=== PATIENT | female | born 1995 | race Caucasian/White ===

== ENCOUNTER 2019-03-03 12:31 | Day surgery (SDC) | payer OTHER, SELFPAY ==
[2019-01-21 15:30] VITALS: BMI 44.4
[2019-02-08 08:51] VITALS: BMI 44.4
--- NOTE | 2019-02-08 09:17 | HP_ITS ---
I have re-examined the patient. There are no clinical changes since date of exam. Intake Vital Signs 01/21/19 Height 5 ft 10 in 01/21/19 Weight: 310 lb 01/21/19 Body Mass Index (BMI) 44.4 Intake Visit Reasons: R. KNEE Accompanied by: parents Is patient in pain?: Yes Pain scale (1-10): 2 Allergies No Known Allergies Allergy (Unverified 01/21/19 15:29) Medications ferrous sulfate 325 mg (65 mg iron) tablet 325 mg PO DAILY 01/21/19 [History Confirmed 01/21/19] levothyroxine 125 mcg capsule 125 mcg PO DAILY 01/21/19 [History] HPI R. KNEE : Surgical H&P: Yes Details: Parts of this documentation were recorded by a scribe, this documentation accurately reflects the service provided and the decisions made by me, Nati Snyder, 01/21/19 5900. BYRON CRISTINA is a 23 year old F NEW patient here today for left knee pain. Patient had a fall October 02 and she had a left arm fx and she fell agian and the orthopedics office was more concerned at the time about her arm and kept saying that her knee pain will improve but her pain is still here today. Denies any popping but does have instability and giving our of her knee. she has had an MRI and x-rays of her left knee. Patient has a deep joint pain below her patella. Patient has had PT but she is still lacking full extension. Denies numbness, tingling or other associated symptoms. Denies any previous surgeries or injection. ROS Musc Reports limited joint movement, Denies numbness, Reports stiffness, Denies tingling Skin/Breast Denies rash, Denies skin pain, Denies skin swelling Neuro No numbness, No tingling Ortho Exam Left Knee Knee ROM: No ROM-Extension -20 to 0, No ROM-Flexion 0-140 Examination: Yes Lat jt line tenderness, Yes Pain with flexion Stability: 2+: Anterior Drawer KNEE: Marshal 4+ No rales rhonchi wheezing, no abdominal pain, no audible bruits Assessment & Plan Problems 1. Sprain of anterior cruciate ligament of left knee, initial encounter S83.512A 2. Other tear of lateral meniscus of left knee as current injury, initial encounter S83.282A Plan Personally reviewed the patient's medical history, medications, surgeries and recent exams if available. Educated on the anatomy of the knee and explained that she has a free edge tear noted in the radiology reports but on exam she has signs Explained that with an ACL and meniscal root tear the option would be repair of both for stability and to keep all possible cushion in the knee for nursing home health of the knee, there will be increased risk of arthrofibrosis due to surgery. Reviewed the graft options for ALC reconstruction and the differences between options based on activity level. Explained that this time of year fills up fast we will get her in a hinged brace but she will sign today and cancel if needed. we need preop disc prior to surgical intervention. notified patient of this and will drop disc off. Reviewed the pre-operative plans with the patient. Risks and benefits of the procedure were fully explained, including but not limited to infection, neurovascular injury, continued pain, arthritis, stiffness, need for further surgery, re-injury, DVT, PE, general risks of anesthesia, and loss of limb or life. The patient understands all the risks and does wish to proceed with written consent. Follow up post op or sooner if pain, swelling, numbness or associated symptoms, or concerns develop. All questions answered. Patient in agreement of plan. Coding Level of Care Code Off vis,new,level 3 Diagnoses Sprain of anterior cruciate ligament of left knee, initial encounter S83.512A Other tear of lateral meniscus of left knee as current injury, initial encounter S83.282A ??Encounter type: initial encounter ??Meniscus of knee: lateral ??Meniscus tear of knee type: other type ??Tear current or old: current
[2019-03-03] VITALS (12 sets, daily range): BP systolic 128–156; BP diastolic 77–98; PULSE 95–112; RESP 16–18; TEMP 36.6–37.1; O2SAT 93–99; BMI 45.7
--- NOTE | 2019-03-03 12:51 | EKG12_ITS ---
Test Reason : PREOP Blood Pressure : / mmHG Vent. Rate : 096 BPM Atrial Rate : 096 BPM P-R Int : 150 ms QRS Dur : 086 ms QT Int : 368 ms P-R-T Axes : 018 019 000 degrees QTc Int : 464 ms Normal sinus rhythm Normal ECG No previous ECGs available Confirmed by SOLE LEAYR, RONNIE ([id number]), graphics editor WOJCIECH CARRASCO ([id number]) on 03/08/2019 10:16:44 AM Referred By: Nati Snyder Confirmed By:RONNIE WHIPPLE MD
[2019-03-03 13:07] LABS: Internal QC Validated? YES +Cl - CLEAR BKGD
[2019-03-03 13:12] LABS: Pregnancy, Urine Negative Negative
[2019-03-03] MEDS: Lactated Ringers 1,000 ML 100 ML IV ×2 (13:26→17:30)
[2019-03-03 13:31] LABS: Hematocrit 34.9 % (37-47); Hemoglobin 10.7 g/dL (12.0-15.0); Mean Corp Hgb Conc 30.7 g/dL (32-36); Mean Corpuscular Hgb 24.9 pg (27.0-32.0); Mean Corpuscular Volume 81.2 fL (81-99); Platelet Count 464 K/mm3 (150-450); RBC Distribution Width CV 16.3 % (11.6-14.6); RBC Distribution Width SD 47.8 fl (35.1-43.9); White Blood Count 8.3 K/mm3 (4.4-11.0)
[2019-03-03 13:51] LABS: Prothrombin Time (Protime)PT. 13.3 SECONDS (11.7-14.9)
[2019-03-03 13:52] LABS: Partial Thromboplast Time 32.6 Seconds (24.1-36.2)
[2019-03-03 13:53] LABS: Thyroid Stim Hormone (TSH) 2.88 uIU/mL (0.358-3.74)
[2019-03-03] MEDS: Cefazolin 2 GM in 0.9% Normal Saline 100 ML IV (15:34)
[2019-03-03] MEDS: Epinephrine (1 mg/ml) 1 MG/ML VIAL (15:34)
--- NOTE | 2019-03-03 15:42 | PCM.DC.ORTHO ---
Discharge Diet: No Restrictions - Toe-touch weightbearing brace locked in extension during ambulation and at night, may range of motion 0 to 30 degrees while seated, ankle pumps ice elevate toes above nose, follow-up on Friday with Antonio for dressing change and brace adjustment, call with concerns Discharge Activity: May Not Drive May shower in (days): 1 Ice area for (Minutes): 20 - Every hour while awake. Weight Bearing Status: Weight bearing as tolerated Keep extremity elevated above heart level: Operative Extremity Call your doctor if your incision/area has: Continuous Slow Oozing, Sudden Increased Bleeding, Increased Pain/ Swelling, Increased Redness, Foul Smelling Discharge Call your doctor if you observe: Fever of 101 or Higher, Coldness, Increased Pain, Numbness or Tingling, Change in Color, Calf discomfort Allergies/Adverse Reactions: Allergies No Known Allergies Allergy (Unverified 03/03/19 13:11) Medications to take at Discharge ferrous sulfate 325 mg (65 mg iron) tablet 325 mg PO DAILY 01/21/19 levothyroxine 125 mcg capsule 125 mcg PO DAILY 01/21/19 Hydrocodone Bitart/Apap 5-325 [[place] 5MG-325MG] 1 - 2 tab PO Q6H PRN PRN 5 Days #40 tab 03/03/19 The following prescriptions were given: Hydrocodone Bitart/Apap 5-325 [[place] 5MG-325MG] 1 - 2 tab PO Q6H PRN PRN 5 Days #40 tab PRN Reason: Pain Transmission Status: Received by [facility] Primary Care Physician: ANGELINA YEE [Other] Test Results: Test results from this visit will be discussed in further detail at your follow-up appointment, if applicable. Please Follow Up With: Nati Snyder, DO - [phone]
--- NOTE | 2019-03-03 15:43 | PCM.OPRPT ---
Report of Operation Date of Procedure: 03/03/19 Pre-Operative Diagnosis: left acl tear, lat meniscus tear Post-Operative Diagnosis: same Surgery/Procedure Performed:: salk, plm, lat men repair, partial lateral meniscectomy, acl reconstruction with quad autograft trimming machine set up operator: Magno Boston Type of Anesthesia:: General Anesthesiologist: Chong Kapoor Estimated Blood Loss (mL): minimal Fluids Replaced: 1500cc Description of Procedure: Preoperative note Patient is a 23-year-old female with continued left knee instability and pain. Patient states that the leg strips and gives out on her even while she is doing activities of daily living. MRI confirmed lateral meniscus tear and ACL tear. Patient failed conservative treatment like to proceed with left knee arthroscopy repair as indicated. Risk benefits and alternatives surgery discussed the patient. Risks include but not limited to blood loss, blood clot, infection, neurovascular, failure procedure, loss of life and loss of limb. Patient is aware and like to proceed with left knee arthroscopy ACL reconstruction with autograft repair as indicated. Next Operative note Patient seen and examined preop holding her. Left knee was marked. Patient brought to the operating room placed supine on the operating table sign, anesthesia, antibiotics were administered. The left leg was prepped and draped in usual sterile fashion with a tourniquet around her upper thigh. All bony promises well-padded padded SCDs placed on her contralateral limb. Monitor portal placement for left leg. We then marked out our incision for our quad tendon autograft harvest. Timeout was performed. We then made about a 3 cm incision over the superior aspect of the patella horizontal fashion we then secured the quad autograft in standard technique using [email or web address] his quad autograft system. We then prepared in standard technique on the back table. The leg was then elevated exsanguinated and triggers rates her pressure of 250 300 torr. We created an anteromedial portal under direct visualization. The medial meniscus was intact and stable probing. The medial femoral condyle middle medial tibial plateau were intact and stable probing. The ACL was torn the PCL was present within the notch. There is a posterior para meniscal cyst posterior to the PCL. We then probed the lateral meniscus there was an unstable lateral meniscus tear as well as a root tear that was an unstable flap tear at the root itself was secured. We inserted a shaver and resected back the unstable lateral meniscus tear we then noted that the meeting tear was actually at the red-white red-pink border this was gently rasped we placed 3 reverse curved FasT-Fix device across we then inserted a probe and noted that we had secured the meniscus for our remaining. We did also truncated little bit more of the graft of the meniscus towards the mid body and assess there was an undersurface flap tear there as well. We then moved to her ACL. We performed a notchplasty we measured the graft in the back table to be 8-1/2 we then did use a flip pole cutter standard technique inside out from the lateral side ensuring that we prepared and protected all neurovascular structures. We then placed our medial portal. We placed our tibial guide and drilled our flip cutter for the tibial side as well. In standard technique. We then brought the graft in the back table brought through the medial portal flipped the button on the lateral femoral cortex and visualize this intra-articularly. We then were able to bring the graft into the femoral socket about 20 mm or so. We then cycled the graft we then brought the graft down to the tibial tunnel and then secured the graft on the tibial side with a button using again [employer] system. We then brought the graft further into the femoral tunnel and then truncated also loose suture ends. The knee was irrigated with copious amounts of sterile saline. The incisions were closed with 2-0 Vicryl and 4-0 nylon the portals were closed with 4-0 nylon. Sterile dressings were applied the tourniquet was deflated for a total working time of 87 minutes. Patient tied procedure well no comp occasions treasury recovery room in stable condition. Patient did have sterile dressings and a hinged brace was applied to her left knee. Postoperative note Next Pharmacy has prescriptions We will give family pictures in 2 weeks Elevate, ice, ankle pumps, compression socks as discussed Call with increased pain numbness tingling further issues arise This note was generated with [employer] dictation software. It may contain incorrect words, spelling, and punctuation that were not noted in checking the note before signing. Grafts/Implants Used: quad autograft
[2019-03-03] MEDS: Mupirocin Ointment 22gm Tube 1 APPLIC (18:13)
== END 2019-03-03 21:10 | disposition home or self-care (01) ==
LOC: SDC 12:33 → AC 12:35
PROVIDERS: Anesthesiology; Referring Provider Orthopaedic Surgery; Visit Provider Orthopaedic Surgery
PROC: (CPT 29882; principal; 2019-03-03 14:05)
DX: S83.512A Sprain of anterior cruciate ligament of left knee, initial encounter (principal); S83.282A Other tear of lateral meniscus, current injury, left knee, initial encounter; W19.XXXA Unspecified fall, initial encounter; Y93.9 Activity, unspecified; Y92.9 Unspecified place or not applicable; G47.30 Sleep apnea, unspecified; G25.81 Restless legs syndrome; D64.9 Anemia, unspecified; E06.9 Thyroiditis, unspecified; Z79.899 Other long term (current) drug therapy
CPT/HCPCS: 29882; 29888; 81025; 84443; 85027; 85610; 85730; 93005; C1713; J7120; J2405

== ENCOUNTER 2019-04-08 14:30 | Outpatient (RCR) | payer OTHER, SELFPAY ==
[2019-03-16 09:54] VITALS: BMI 45.7
--- NOTE | 2019-03-18 16:18 | HP.PTEVAL ---
Patient's Visit Information BYRON CRISTINA is a 23 year old F referred to Physical Therapy by Nati Snyder DO with a diagnosis of ACL and meniscal repair. Date of Evaluation: 03/18/19 Physical Therapist: Africa Bowman DPT - Visit Plan Frequency: 1x/Week Duration: 6 Weeks Plan: Focus on extension and quad sets - Subjective Findings: Woke up in the middle of the night this summer- broke left arm-but her leg was bothering her. Did 6 weeks of PT on her left leg then they did an MRI and found an ACL and meniscus repair 03/[address] Snyder. Home after surgery- lives in single story home with 2 stairs to get into- ramp to get in. Fully I prior to surgery. Is currently living with her parents but plans to get back to her own apt again soon. 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 Does have help at home as needed. Sore around the knee cap- No pain radiating to the ankle or hip. Describes the pain as dull and achy. Worst: 5/10 Agg: not elevating Eases:elevation, polar ice cube Best: 0/10. Sleep: disturbed- Wears the brace all the time and is toe touch weight bearing. Saw Dr. Cuba on Friday-6 weeks TTWB until 04/15/18. PMHx/Meds: no changes since then. - Objective Posture:FH, RS, increased kyphosis. Gait: jump to TTWB on FWW. Girth: 6 above 64 cm, 6 below: 47 cm- no patella due to wrap under clothes. ROM: 28 degrees of extension to 30 degrees of flexion (per MD allowance of flexion). Strength: quad set visible but weak- SLR significant lag. Patellar Mobility: good - Goals Goal 1:: Patient will be I with HEP and progression Goal Time Frame: 6-8 Weeks Goal 2:: Patient will demo full knee extension Goal Time Frame: 6-8 Weeks - Rehabilitation Potential Physical Therapy Diagnosis: Patient presents with hypomobility- she had decreased ROM, strength, flex and muscular endurance Rehabilitation Potential: Fair - Anticipated Interventions Patient/Client Instruction: Educate patient on: Benefits of Fitness Program Therapeutic Exercise to Include: Strength training, Endurance training, Balance training, Body mechanics, Postural training, Flexibilty training, Gait and locomotor training, Passive ROM, Active ROM, Dynamic Lumbar Stabilization For the Purpose of:: To improve muscle performance and motor function TENS: Yes Cryotherapy (ice pack, ice massage): Yes Thermo therapy (hot pack): Yes Ultrasound (thermal/non thermal): No Thank you for the opportunity to evaluate your patient. For Medicare and Medicare HMO plans, please review the plan of care and approve it. It will need to be FAXED BACK to us at [phone] for Medicare purposes. For Medicare only, by signing this I certify the plan of care. Please let me know if there are questions or concerns regarding this plan of care. Physician Signature: Date:
--- NOTE | 2019-08-24 11:46 | HP.PT.NRP ---
BYRON CRISTINA was seen in my office for initial evaluation on 03/18/19. The following Plan of Care was established for this patient: Initial Frequency: 1x/Week Initial Duration: 6 Weeks Patient/Client Instruction: Educate patient on: Benefits of Fitness Program Therapeutic Exercise to Include: Strength training, Endurance training, Balance training, Body mechanics, Postural training, Flexibilty training, Gait and locomotor training, Passive ROM, Active ROM, Dynamic Lumbar Stabilization For the Purpose of:: To improve muscle performance and motor function TENS: Yes Cryotherapy (ice pack, ice massage): Yes Thermo therapy (hot pack): Yes Ultrasound (thermal/non thermal): No This patient was last seen in our office . Pertinent comments regarding their Physical therapy will appear below: Patient has not attended PT for over 8 weeks- appropriate to be d/c at this time and follow up with MD as needed. At this point I will be discontinuing this patient from physical therapy. I would be happy to see this patient again in the future if found appropriate by the physician. Thank you! STEPHON [employer]
== END 2019-04-08 19:00 | disposition home or self-care (01) ==
LOC: PT 14:30
PROVIDERS: Referring Provider Orthopaedic Surgery; Visit Provider Orthopaedic Surgery
DX: Z98.890 Other specified postprocedural states (principal)
CPT/HCPCS: 97110; 97161